=== PATIENT | female | born 1995 | race Caucasian/White ===

== ENCOUNTER 2019-01-13 19:31 | Emergency (ER) | payer MEDICAID ==
[~2019-01-13] VITALS: Ht 170.2 cm; Wt 93.0 kg
[2019-01-13 20:01] VITALS: BP_SYST 122
--- NOTE | 2019-01-13 20:06 | NUR ---
Patient to ER bed 05 to gown for evaluation. Side rails up.
--- NOTE | 2019-01-13 20:07 | NUR ---
R shoulder restraint placed. Cap refill brisk.
--- NOTE | 2019-01-13 20:10 | NUR ---
ER PATIENT FINANCIAL SPECIALIST Garibay at bedside for medical evaluation.
--- NOTE | 2019-01-13 20:10 | NUR ---
Patient AOx4, ambulatory, presents to ER with complaint of right shoulder pain 8 after the patient was boxing. Patient states this pain occurred 1 month ago. Mother at bedside and states, "she over does it sometimes". No other symptoms or complaints.
[2019-01-13] MEDS ORDERED: ONDANSETRON 4 MG ODT TAB PO ONE (20:15)
[2019-01-13] MEDS ORDERED: KETOROLAC TROMETHAMINE 30 MG VIAL IM ONE (20:15)
[2019-01-13] MEDS ORDERED: HYDROcodone/ACETAMIN 5-325 MG TAB (NORCO/ VICODIN) PO ONE (20:15)
--- NOTE | 2019-01-13 20:52 | NUR ---
No adverse reactions noted after medication administration. Will continue to monitor.
[2019-01-13 20:55] VITALS: BP_SYST 118
--- NOTE | 2019-01-13 20:55 | NUR ---
Patient given written and verbal discharge instructions and verbalizes understanding. ER MD discussed with patient the results and treatment provided. Patient in stable condition. ID arm band removed. Rx of Ibuprofen and Tramadol given. Patient educated on pain management and to follow up with PMD. Pain Scale 0/10. Opportunity for questions provided and answered. Medication side effect fact sheet provided.
== END 2019-01-13 20:55 | disposition home or self-care (01) ==
LOC: SED 19:31
DX: S46.911A Strain of unspecified muscle, fascia and tendon at shoulder and upper arm level, right arm, initial encounter (principal); X58.XXXA Exposure to other specified factors, initial encounter; Y93.71 Activity, boxing; Y92.89 Other specified places as the place of occurrence of the external cause; Y99.8 Other external cause status
CPT/HCPCS: 81025; 96372; 99283; J1885; Q0162

== ENCOUNTER 2019-05-30 19:56 | Emergency (ER) | payer MEDICAID ==
[~2019-05-30] VITALS: Ht 170.2 cm; Wt 97.1 kg
[2019-05-30 20:02] VITALS: BP_SYST 133
[2019-05-30] MEDS ORDERED: IBUPROFEN 800 MG TABLET PO ONE (22:15)
[2019-05-30 23:29] VITALS: BP_SYST 133
== END 2019-05-30 23:29 | disposition home or self-care (01) ==
LOC: SED 19:56
DX: R07.89 Other chest pain (principal); J45.909 Unspecified asthma, uncomplicated
CPT/HCPCS: 71045; 81025; 93005; 99283

== ENCOUNTER 2020-04-30 20:33 | Emergency (ER) | payer MEDICAID ==
[~2020-04-30] VITALS: Ht 170.2 cm; Wt 95.3 kg
[2020-04-30 20:35] VITALS: BP_SYST 132
[2020-04-30 22:18] VITALS: BP_SYST 132
== END 2020-04-30 22:18 | disposition home or self-care (01) ==
LOC: SED 20:33
DX: M79.671 Pain in right foot (principal)
CPT/HCPCS: 81025; 99283

== ENCOUNTER → 2022-02-17 | Emergency (ER) | payer BC, MEDICAID ==
[~2022-02-17] VITALS: Ht 170.2 cm; Wt 87.1 kg
[~2022-02-17] MED LIST: IBUP-1969 PO; IBUPROFEN 600 MG TABLET PO ONE; ONDA-8 TL; ONDANSETRON 4 MG ODT TAB PO ONE
--- NOTE | 2022-02-17 16:00 | NUR ---
Pt brought by self, A&Ox4, pt presents to ER with bodyaches N/V since yesterday , skin pink and warm, cap refill <3, VSS, respirations even and unlabored, pt states she has HX of asthma, will cont to monitor.
[2022-02-17 16:19] VITALS: BP_SYST 146
--- NOTE | 2022-02-17 16:30 | NUR ---
Dr Thompson evaluating patient at bedside
--- NOTE | 2022-02-17 17:18 | NUR ---
Pt urine specimen collected and tested for negative , noted UA results not remarkable. 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
[2022-02-17 17:29] LABS: HEMOGLOBIN 14.4 g/dL (12.0-16.0)
[2022-02-17 17:37] LABS: ANION GAP 5 (5-15); CALCIUM 8.8 mg/dL (8.4-11.0); CHLORIDE 104 mmol/L (98-107); CREATININE 0.79 mg/dL (0.55-1.30); GLUCOSE 80 mg/dL (70-99); POTASSIUM 3.9 mmol/L (3.5-5.1); SODIUM SERUM 140 mmol/L (136-145); UREA NITROGEN, BLOOD 13 mg/dL (8-21)
[2022-02-17 17:40] LABS: GFR AFRICAN AMERICAN 114 mL/min (>90)
[2022-02-17 17:42] LABS: BASOPHILS % (AUTO) 0.6 % (0.0-2.0); EOSINOPHILS # (AUTO) 0.1 K/uL (0.0-0.4); EOSINOPHILS % (AUTO) 1.1 % (0.0-4.0); HEMATOCRIT 42.9 % (36-48); LYMPHOCYTES # (AUTO) 1.5 K/uL (1.0-5.5); LYMPHOCYTES % (AUTO) 25.7 % (20.5-51.5); MEAN CORPUSCULAR HEMOGLOBIN 30 pg (27-31); MEAN CORPUSCULAR HGB CONC 34 % (32-36); MEAN CORPUSCULAR VOLUME 89 fL (79.0-98.0); MONOCYTES # (AUTO) 0.3 K/uL (0.0-1.0); MONOCYTES % (AUTO) 5.1 % (1.7-9.3); NEUTROPHILS # (AUTO) 3.8 K/uL (1.8-7.7); NEUTROPHILS % (AUTO) 67.5 % (40.0-70.0); PLATELET COUNT (AUTO) 274 K/uL (130-430); RED BLOOD CELL COUNT(AUTO) 4.81 MIL/uL (4.2-6.2); RED CELL DISTRIBUTION WIDTH 12.9 % (9.0-15.0); WHITE BLOOD COUNT (AUTO) 5.7 K/uL (4.8-10.8)
[2022-02-17 17:44] LABS: ALANINE AMINOTRANSFERASE 13 U/L (12-78); ALBUMIN 3.8 g/dL (3.4-4.8); AMYLASE 66 U/L (0-100); ASPARTATE AMINOTRANSFERASE 16 U/L (10-37); C-REACTIVE PROTEIN QUANT < 0.2 mg/dL (0-0.5); LIPASE 135 U/L (73-393); TOTAL BILIRUBIN 0.3 mg/dL (0.0-1.0)
--- NOTE | 2022-02-17 18:10 | NUR ---
Pt A&Ox4, VSS, respirations even and unlabored, cap refill<3
[2022-02-17 18:18] LABS: ACETONE, SERUM NEGATIVE (NEGATIVE)
[2022-02-17 19:11] VITALS: BP_SYST 146
--- NOTE | 2022-02-17 19:13 | NUR ---
Patient given written and verbal discharge instructions and verbalizes understanding. ER MD discussed with patient the results and treatment provided. Patient in stable condition. ID arm band removed. Rx of Ibuprofen and Zofran given. Patient educated on pain management and to follow up with PMD. Pain Scale 0/10. Opportunity for questions provided and answered. Medication side effect fact sheet provided.
== END | disposition home or self-care (01) ==
LOC: SED 15:57
DX: A05.9 Bacterial foodborne intoxication, unspecified (principal); J45.909 Unspecified asthma, uncomplicated; Z79.899 Other long term (current) drug therapy; Z20.822 Contact with and (suspected) exposure to COVID-19
CPT/HCPCS: 99284; 71045; 87426; 80053; 82009; 82150; 84703; 83690; 85025; 86140; 36415; 81002; 81025; 83605; Q0162

== ENCOUNTER 2022-03-11 17:52 | Emergency (ER) | payer BC, MEDICAID ==
[~2022-03-11] VITALS: Ht 165.1 cm; Wt 68.0 kg
[~2022-03-11 17:52] MED LIST changes: -IBUPROFEN 600 MG TABLET PO ONE; -ONDANSETRON 4 MG ODT TAB PO ONE
--- NOTE | 2022-03-11 18:20 | NUR ---
PT TRIAGED IN WAITING ROOM, EKG COMPLETED. PT TAKEN FOR CXR. THEN PLACED IN BED 2, CORTES RN MADE AWARE. PT HAS C/O SOB AND LEFT SIDE CHEST TIGHTNESS THAT DOES RESOLVE AFTER USING INHALER. O2 SAT 95% ON RA. PT HAS SINUS TACH HR IN THE 110S. PT HAS HX OF CARDIOMEGALLY. SIDE RAILS UP X2.
[2022-03-11 18:30] VITALS: BP_SYST 116
[2022-03-11 19:34] LABS: BASOPHILS % (AUTO) 0.6 % (0.0-2.0); EOSINOPHILS % (AUTO) 0.4 % (0.0-4.0); HEMATOCRIT 39.3 % (36-48); HEMOGLOBIN 13.5 g/dL (12.0-16.0); LYMPHOCYTES # (AUTO) 1.1 K/uL (1.0-5.5); MEAN CORPUSCULAR HEMOGLOBIN 30 pg (27-31); MEAN CORPUSCULAR HGB CONC 34 % (32-36); MEAN CORPUSCULAR VOLUME 87 fL (79.0-98.0); MONOCYTES # (AUTO) 0.3 K/uL (0.0-1.0); MONOCYTES % (AUTO) 4.6 % (1.7-9.3); NEUTROPHILS # (AUTO) 4.9 K/uL (1.8-7.7); NEUTROPHILS % (AUTO) 77.4 % (40.0-70.0); PLATELET COUNT (AUTO) 257 K/uL (130-430); RED BLOOD CELL COUNT(AUTO) 4.51 MIL/uL (4.2-6.2); RED CELL DISTRIBUTION WIDTH 12.5 % (9.0-15.0); WHITE BLOOD COUNT (AUTO) 6.3 K/uL (4.8-10.8)
[2022-03-11 19:43] LABS: ANION GAP 8 (5-15); CALCIUM 8.4 mg/dL (8.4-11.0); CHLORIDE 108 mmol/L (98-107); GLUCOSE 94 mg/dL (70-99); POTASSIUM 3.5 mmol/L (3.5-5.1); SODIUM SERUM 141 mmol/L (136-145); UREA NITROGEN, BLOOD 11 mg/dL (8-21)
[2022-03-11 19:44] LABS: GFR AFRICAN AMERICAN 131 mL/min (>90)
[2022-03-11 20:00] LABS: ALANINE AMINOTRANSFERASE 13 U/L (12-78); ALBUMIN 3.8 g/dL (3.4-4.8); ASPARTATE AMINOTRANSFERASE 15 U/L (10-37); TOTAL BILIRUBIN 0.4 mg/dL (0.0-1.0)
[2022-03-11] MEDS ORDERED: IPRATROPIUM BROM 0.5 MG/2.5 ML VIAL.NEB (ATROVENT) INH ONE (20:00)
[2022-03-11] MEDS ORDERED: ALBUTEROL SULFATE 0.083% 2.5 MG/3 ML VIAL.NEB INH ONE (20:00)
--- NOTE | 2022-03-11 20:51 | NUR ---
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 HX; ASTHMA. ALBUTERAL INH WITHOUT AFFECT/ RELIEF. GRANDMOTHER AT BEDSIDE RT CALLED AND HHN ALBUTERAL STARTED. PT SAYS SOB RELEIF AND CHEST TIGHTNESS DEMINISHED. RELAXING ON BED VSS. CONTINUED MONITORING
[2022-03-11 21:54] VITALS: BP_SYST 132
--- NOTE | 2022-03-11 21:55 | NUR ---
PT STABLE FOR D/C TO HOME WITH GRANDMOTHER. TO LOBBY AMB WITH ALL PAPERWORK IN HAND. PT VERBALIZED UNDERSTANDING
== END 2022-03-11 21:52 | disposition home or self-care (01) ==
LOC: SED 17:52
DX: J98.01 Acute bronchospasm (principal); R07.9 Chest pain, unspecified; R06.02 Shortness of breath; Z79.899 Other long term (current) drug therapy
CPT/HCPCS: 80053; 84703; 83880; 85025; 85379; 84484; 36415; 93005; 71045; 94640; 99285; J7613